=== PATIENT | male | born 1980 | race Two or more races ===

== ENCOUNTER → 2020-04-01 | Day surgery (SDC) | payer OTHER ==
[~2020-04-01] MED LIST: LEVOTHYROXINE25 MCG PO
== END | disposition home or self-care (01) ==
LOC: ADM 03-30 09:45 → CIR.AMB 07:43
PROVIDERS: ATTEND Colon & Rectal Surgery
DX: K64.8 Other hemorrhoids (principal); K64.4 Residual hemorrhoidal skin tags

== ENCOUNTER 2021-10-08 23:09 | Emergency (ER) | payer OTHER ==
[~2021-10-08] VITALS: Ht 167.6 cm; Wt 65.8 kg
== END 2021-10-09 00:33 | disposition home or self-care (01) ==
LOC: ER 23:09
DX: T78.40XA Allergy, unspecified, initial encounter (principal)